=== PATIENT | male | born 1955 | race Caucasian/White ===

== ENCOUNTER 2018-12-08 07:58 | Outpatient (CLI) | payer MEDICARE, BC ==
[2018-12-08 09:56] LABS: ALBUMIN 4.4 g/dL (3.2-5.5); ALBUMIN/GLOBULIN RATIO 1.6 (1.0-2.2); ALKALINE PHOSPHATASE 25 IU/L (42-121); ALT ALANINE AMINOTRANSFERASE 20 IU/L (10-60); AST ASPARTATE AMINOTRANSFERASE 23 IU/L (10-42); BUN - BLOOD UREA NITROGEN 18 mg/dL (6-20); CALCIUM 9.2 mg/dL (8.5-10.3); CARBON DIOXIDE - CO2 29 mmol/L (21-32); CHLORIDE 103 mmol/L (101-111); CHOL/HDL RATIO 3.1 (<5.0); CHOLESTEROL 162 mg/dL; CREATININE 0.8 mg/dL (0.6-1.2); GFR - MDRD 97 (>89); GLUCOSE 111 mg/dL (70-100); HDL CHOLESTEROL 53 mg/dL; LDL CHOLESTEROL,CALCULATED 89 mg/dL; LDL/HDL RATIO 1.7 (<3.6); SODIUM 139 mmol/L (135-145); TOTAL PROTEIN 7.2 g/dL (6.7-8.2); VLDL CHOLESTEROL 20 mg/dL
== END 2018-12-08 07:59 | disposition home or self-care (01) ==
LOC: LAB.S 07:58
PROVIDERS: ATTEND Internal Medicine
DX: E78.5 Hyperlipidemia, unspecified (principal); Z12.5 Encounter for screening for malignant neoplasm of prostate
CPT/HCPCS: 36415; 80053; 80061; G0103; 83721; 84153

== ENCOUNTER 2020-05-03 09:33 | Outpatient (CLI) | payer MEDICARE, BC ==
[2020-05-03 14:56] LABS: BASOPHILS % (AUTO) 0.7 %; EOSINOPHILS # (AUTO) 0.3 10^3/uL (0.0-0.7); EOSINOPHILS % (AUTO) 5.4 %; HGB - HEMOGLOBIN 15.1 g/dL (14.0-18.0); LYMPHOCYTES # (AUTO) 1.3 10^3/uL (1.5-3.5); LYMPHOCYTES % (AUTO) 22.5 %; MEAN CORPUSCULAR HGB CONC 32.6 g/dL (32.0-36.0); MEAN PLATELET VOLUME 11.5 fL (7.4-11.4); MONOCYTES # (AUTO) 0.4 10^3/uL (0.0-1.0); MONOCYTES % (AUTO) 6.7 %; NEUTROPHILS # (AUTO) 3.6 10^3/uL (1.5-6.6); NEUTROPHILS % (AUTO) 62.8 %; PLT - PLATELET COUNT 253 10^3/uL (130-450); RED BLOOD COUNT 5.03 10^6/uL (4.70-6.10); RED CELL DISTRIBUTION WIDTH 14.1 % (12.0-15.0); WHITE BLOOD COUNT 5.8 x10^3/uL (4.8-10.8)
[2020-05-03 15:33] LABS: ALBUMIN 4.7 g/dL (3.2-5.5); ALBUMIN/GLOBULIN RATIO 1.8 (1.0-2.2); ALKALINE PHOSPHATASE 22 IU/L (42-121); ALT ALANINE AMINOTRANSFERASE 26 IU/L (10-60); AST ASPARTATE AMINOTRANSFERASE 29 IU/L (10-42); BUN - BLOOD UREA NITROGEN 17 mg/dL (6-20); CALCIUM 9.7 mg/dL (8.5-10.3); CARBON DIOXIDE - CO2 27 mmol/L (21-32); CHLORIDE 100 mmol/L (101-111); CHOL/HDL RATIO 3.7 (<5.0); CHOLESTEROL 226 mg/dL; CREATININE 0.8 mg/dL (0.6-1.2); GLUCOSE 109 mg/dL (70-100); HDL CHOLESTEROL 61 mg/dL; LDL CHOLESTEROL,CALCULATED 140 mg/dL; LDL/HDL RATIO 2.3 (<3.6); TOTAL PROTEIN 7.3 g/dL (6.7-8.2); VLDL CHOLESTEROL 25 mg/dL
== END 2020-05-03 09:34 | disposition home or self-care (01) ==
LOC: LAB.S 09:33
PROVIDERS: ATTEND Internal Medicine
DX: E78.5 Hyperlipidemia, unspecified (principal); Z12.5 Encounter for screening for malignant neoplasm of prostate; Z85.828 Personal history of other malignant neoplasm of skin; R51.9 Headache, unspecified
CPT/HCPCS: 36415; 80053; 80061; 85025; G0103; 83721; 84153

== ENCOUNTER 2020-12-04 09:18 | Outpatient (CLI) | payer MEDICARE, BC ==
[2020-12-04 14:37] LABS: BASOPHILS # (AUTO) 0.1 10^3/uL (0.0-0.1); EOSINOPHILS # (AUTO) 0.5 10^3/uL (0.0-0.7); EOSINOPHILS % (AUTO) 9.2 %; HGB - HEMOGLOBIN 14.2 g/dL (14.0-18.0); LYMPHOCYTES # (AUTO) 1.3 10^3/uL (1.5-3.5); MEAN CORPUSCULAR HEMOGLOBIN 30.5 pg (27.0-31.0); MEAN CORPUSCULAR HGB CONC 32.3 g/dL (32.0-36.0); MEAN CORPUSCULAR VOLUME 94.6 fL (80.0-94.0); MEAN PLATELET VOLUME 13.3 fL (7.4-11.4); MONOCYTES # (AUTO) 0.3 10^3/uL (0.0-1.0); MONOCYTES % (AUTO) 6.6 %; NEUTROPHILS # (AUTO) 2.9 10^3/uL (1.5-6.6); NEUTROPHILS % (AUTO) 57.6 %; PLT - PLATELET COUNT 171 10^3/uL (130-450); RED BLOOD COUNT 4.65 10^6/uL (4.70-6.10)
[2020-12-04 15:09] LABS: ALBUMIN 4.3 g/dL (3.2-5.5); ALBUMIN/GLOBULIN RATIO 1.7 (1.0-2.2); ALKALINE PHOSPHATASE 20 IU/L (42-121); ALT ALANINE AMINOTRANSFERASE 19 IU/L (10-60); AST ASPARTATE AMINOTRANSFERASE 18 IU/L (10-42); BILIRUBIN,TOTAL 0.9 mg/dL (0.2-1.0); BUN - BLOOD UREA NITROGEN 15 mg/dL (6-20); CALCIUM 8.8 mg/dL (8.5-10.3); CARBON DIOXIDE - CO2 30 mmol/L (21-32); CHLORIDE 101 mmol/L (101-111); CHOLESTEROL 190 mg/dL; CREATININE 0.7 mg/dL (0.6-1.2); GFR - MDRD 112 (>89); GLUCOSE 106 mg/dL (70-100); HDL CHOLESTEROL 47 mg/dL; LDL CHOLESTEROL,CALCULATED 123 mg/dL; LDL/HDL RATIO 2.6 (<3.6); POTASSIUM 3.9 mmol/L (3.5-5.0); SODIUM 138 mmol/L (135-145); TOTAL PROTEIN 6.8 g/dL (6.7-8.2); TRIGLYCERIDES 101 mg/dL; VLDL CHOLESTEROL 20 mg/dL
== END 2020-12-04 09:19 | disposition home or self-care (01) ==
LOC: LAB.S 09:18
PROVIDERS: ATTEND Internal Medicine
DX: I10 Essential (primary) hypertension (principal); E78.5 Hyperlipidemia, unspecified
CPT/HCPCS: 36415; 80053; 80061; 83721; 85025

== ENCOUNTER 2021-01-23 10:01 | Outpatient (CLI) | payer MEDICARE, BC | END 2021-01-23 10:02 | disposition home or self-care (01) | LOC: LAB.S 10:01 | PROVIDERS: ATTEND Internal Medicine | DX: Z01.84 Encounter for antibody response examination (principal) | CPT/HCPCS: 86769 ==

== ENCOUNTER 2021-04-29 07:38 | Outpatient (CLI) | payer MEDICARE, BC | END 2021-04-29 07:39 | disposition home or self-care (01) | LOC: DI 07:38 | PROVIDERS: ATTEND Internal Medicine Cardiovascular Disease | DX: I49.3 Ventricular premature depolarization (principal); I11.9 Hypertensive heart disease without heart failure | CPT/HCPCS: 93306 ==

== ENCOUNTER 2021-05-22 12:42 | Day surgery (SDC) | payer MEDICARE, BC ==
[2021-05-22] MEDS ORDERED: LACTATED RINGERS 1,000 ML IV ONE ×2 (12:49→15:09)
--- NOTE | 2021-05-22 13:53 | ANESTHESIA ---
Pre-Anesthesia VS, & Labs - Diagnosis screening, hx polyps - Procedure colonoscopy w/biopsies Vital Signs: Temp Pulse Resp BP Pulse Ox 36.2 C L 58 L 13 149/74 H 97 05/22/21 12:52 05/22/21 12:52 05/22/21 12:52 05/22/21 12:52 05/22/21 12:52 Height: 6 ft 1 in Weight (kg): 99 kg Body Mass Index: 28.8 BMI Classification: Overweight - NPO >8 hours - Lab Results Lab results reviewed: Yes Anes History & Medical History - Anesthetic History Anesthesia Complications: reports: No previous complications Family history of Anesthesia Complications: Denies Family history of Malignant Hyperthermia: Denies - Medical History Cardiovascular: reports: Hypertension, High cholesterol, Arrhythmia Pulmonary: reports: None Gastrointestinal: reports: None Urinary: reports: Benign prostate hypertrophy Musculoskeletal: reports: None Endocrine/Autoimmune: reports: None Skin: reports: Rosacea - Surgical History General: reports: Other Orthopedic: reports: Rotator cuff repair Exam General: Alert, Oriented x3, Cooperative Dental: WNL Mouth Openin Fingerbreadth Neck Mobility: Normal Mallampati classification: II Thyromental Distance: 4-6 cm Respiratory: Lungs clear, Normal breath sounds, No respiratory distress Cardiovascular: Regular rate (states hx of PVCs, regular today) Neurological: Normal speech Mental/Cognitive Status: Alert/Oriented X3, Normal for patient Cognitive Status: Within normal limits Plan Anesthesia Type: Total IV Consent for Procedure(s) Verified and Reviewed: Yes Code Status: Attempt Resuscitation ASA classification: 2-Mild systemic disease Is this case an emergency?: No
[2021-05-22] MEDS ORDERED: PROPOFOL 500 MG/50 ML 500 MG/50 ML VIAL ONE ×2 (14:28→15:26)
[2021-05-22] MEDS ORDERED: MIDAZOLAM 2 MG/2 ML VIAL ONE (14:29)
[2021-05-22 15:59] VITALS: BP 137/73
--- NOTE | 2021-05-22 16:01 | ANESTHESIA POST OP EVALUATION ---
Anesthesia Post Eval - Post Anesthesia Eval Vitals: Last Vital Signs Temp 36.1 C L 05/22/21 15:57 Pulse 53 L 05/22/21 15:57 Resp 12 05/22/21 15:57 BP 137/73 H 05/22/21 15:57 Pulse Ox 96 05/22/21 15:57 CV Function Including HR & BP: Stable Pain Control: Satisfactory Nausea & Vomiting: Negative Mental Status: Baseline Respiratory Status: Airway Patent Hydration Status: Satisfactory Anesthesia Complications: None
== END 2021-05-22 12:43 | disposition home or self-care (01) ==
LOC: SDS 12:42
PROVIDERS: ATTEND Surgery
PROC: 0DBH8ZZ Excision of Cecum, Via Natural or Artificial Opening Endoscopic (ICD-10-PCS; principal; 2021-05-22 13:00)
DX: Z12.11 Encounter for screening for malignant neoplasm of colon (principal); D12.0 Benign neoplasm of cecum; K57.30 Diverticulosis of large intestine without perforation or abscess without bleeding
CPT/HCPCS: 45380; J7120

== ENCOUNTER 2021-07-14 08:48 | Outpatient (CLI) | payer MEDICARE, BC ==
[2021-07-14 14:31] LABS: BASOPHILS # (AUTO) 0.1 10^3/uL (0.0-0.1); BASOPHILS % (AUTO) 1.1 %; EOSINOPHILS # (AUTO) 0.3 10^3/uL (0.0-0.7); EOSINOPHILS % (AUTO) 5.6 %; HCT - HEMATOCRIT 42.8 % (42.0-52.0); HGB - HEMOGLOBIN 14.5 g/dL (14.0-18.0); LYMPHOCYTES # (AUTO) 1.1 10^3/uL (1.5-3.5); LYMPHOCYTES % (AUTO) 19.6 %; MEAN CORPUSCULAR HGB CONC 33.9 g/dL (32.0-36.0); MEAN CORPUSCULAR VOLUME 91.5 fL (80.0-94.0); MEAN PLATELET VOLUME 13.1 fL (7.4-11.4); MONOCYTES # (AUTO) 0.3 10^3/uL (0.0-1.0); MONOCYTES % (AUTO) 6.3 %; NEUTROPHILS # (AUTO) 3.6 10^3/uL (1.5-6.6); NEUTROPHILS % (AUTO) 66.8 %; PLT - PLATELET COUNT 183 10^3/uL (130-450); RED BLOOD COUNT 4.68 10^6/uL (4.70-6.10); RED CELL DISTRIBUTION WIDTH 14.8 % (12.0-15.0); WHITE BLOOD COUNT 5.4 x10^3/uL (4.8-10.8)
[2021-07-14 14:48] LABS: ALBUMIN 4.4 g/dL (3.2-5.5); ALBUMIN/GLOBULIN RATIO 1.8 (1.0-2.2); ALKALINE PHOSPHATASE 23 IU/L (42-121); ALT ALANINE AMINOTRANSFERASE 20 IU/L (10-60); AST ASPARTATE AMINOTRANSFERASE 20 IU/L (10-42); BILIRUBIN,TOTAL 1.3 mg/dL (0.2-1.0); BUN - BLOOD UREA NITROGEN 14 mg/dL (6-20); CALCIUM 9.4 mg/dL (8.5-10.3); CARBON DIOXIDE - CO2 26 mmol/L (21-32); CHLORIDE 104 mmol/L (101-111); CHOL/HDL RATIO 3.8 (<5.0); CHOLESTEROL 199 mg/dL; CREATININE 0.8 mg/dL (0.6-1.2); GFR - MDRD 96 (>89); GLUCOSE 104 mg/dL (70-100); HDL CHOLESTEROL 52 mg/dL; LDL CHOLESTEROL,CALCULATED 127 mg/dL; LDL/HDL RATIO 2.4 (<3.6); POTASSIUM 4.2 mmol/L (3.5-5.0); SODIUM 137 mmol/L (135-145); TOTAL PROTEIN 6.9 g/dL (6.7-8.2); TRIGLYCERIDES 98 mg/dL; VLDL CHOLESTEROL 20 mg/dL
== END 2021-07-14 08:49 | disposition home or self-care (01) ==
LOC: LAB.S 08:48
PROVIDERS: ATTEND Registered Nurse
DX: I10 Essential (primary) hypertension (principal); E78.5 Hyperlipidemia, unspecified; Z12.5 Encounter for screening for malignant neoplasm of prostate
CPT/HCPCS: 36415; 80053; 80061; 85025; G0103; 83721; 84153

== ENCOUNTER 2021-07-31 16:24 | Outpatient (CLI) | payer MEDICARE, BC | END 2021-07-31 16:25 | disposition home or self-care (01) | LOC: LAB.S 16:24 | PROVIDERS: ATTEND Registered Nurse | DX: E55.9 Vitamin D deficiency, unspecified (principal) | CPT/HCPCS: 82306 ==

== ENCOUNTER 2021-11-17 18:56 | Outpatient (CLI) | payer MEDICARE, BC ==
--- NOTE | 2021-11-18 19:09 | XRAY Report ---
PROCEDURE: Lumbar Spine 2 View INDICATIONS: SCIATICA LEFT TECHNIQUE: 2 views of the lumbar spine were acquired. COMPARISON: None. FINDINGS: Bones: 5 [id number] vertebrae are present. There is normal bony alignment. No vertebral body compression fractures. No suspicious bony lesions. Osteopenia Soft tissues: Overlying bowel gas pattern is normal. No suspicious soft tissue calcifications. IMPRESSION: Osteopenia without fracture or malalignment Reviewed by: Greg Burkett MD on 11/18/2021 6:08 PM AXEL Approved by: Greg Burkett MD on 11/18/2021 6:08 PM AXEL Station ID: [id number]
== END 2021-11-17 18:57 | disposition home or self-care (01) ==
LOC: DI 18:56
PROVIDERS: ATTEND Family Medicine
DX: M85.88 Other specified disorders of bone density and structure, other site (principal); M54.32 Sciatica, left side

== ENCOUNTER 2022-02-20 10:15 | Outpatient (CLI) | payer MEDICARE, BC ==
--- NOTE | 2022-02-21 21:07 | MRI Report ---
PROCEDURE: LUMBAR SPINE WO INDICATIONS: Left sciatica TECHNIQUE: Noncontrast sagittal T1 spin echo and T2 fast echo, sagittal STIR, axial T1 and T2 fast spin echo thr ough the lumbar spine. In cases with scoliosis, additional coronal T2 fast spin echo may be performe d. COMPARISON: None. FINDINGS: Image quality: Excellent. Alignment and Curvature: Normal lumbar vertebral body height and alignment. Bone Marrow: No suspicious focal marrow signal abnormality or bone marrow edema. Spinal Cord: Conus medullaris terminates at the normal level. Visualized cord demonstrates normal s ignal and size. Regional Soft Tissues: Prevertebral and paraspinous soft tissues are within normal limits. T12-L1: No spinal canal or neural foraminal stenosis. L1-L2: No spinal canal or neural foraminal stenosis. Tiny posterior central annular fissure. L2-L3: Disc bulge flattens the ventral thecal sac without mass effect upon the traversing L3 nerve roots. Mild to moderate facet hypertrophy. No neural foraminal stenosis. L3-L4: Disc bulge flattens the ventral thecal sac. Mild displacement of the descending L4 nerve escobar ts and both subarticular zones. Foraminal components of the disc bulge and facet hypertrophy combine to produce mild bilateral neural foraminal stenosis, left greater than right. L4-L5: Moderate to severe spinal canal stenosis due to diffuse disc bulge and a superimposed broad- based posterior disc protrusion. Disc displacement of the descending bilateral L5 nerve roots and bot h subarticular zones. Moderate effacement of the CSF in the thecal sac and crowding of the traversing nerve roots. Buckling of ligamentum flavum and facet hypertrophy further contributes to spinal canal stenosis. Foraminal components of the disc bulge and facet hypertrophy combine to produce mild bilat eral neural foraminal stenosis L5-S1: Diffuse disc bulge and a superimposed broad-based posterior disc protrusion flattening the v entral thecal sac. Disc material mildly displaces the descending bilateral S1 nerve roots, left great er than right. No neural foraminal stenosis. IMPRESSION: Lower lumbar spine degenerative changes, worst at L4-L5 where there is moderate to sever e spinal canal stenosis. Correlate for any corresponding radicular symptoms. Reviewed by: Angel Murdock MD on 02/21/2022 9:06 PM PST Approved by: Angel Murdock MD on 02/21/2022 9:06 PM PST Station ID: [id number]
== END 2022-02-20 10:16 | disposition home or self-care (01) ==
LOC: DI 10:15
PROVIDERS: ATTEND Family Medicine
DX: M51.16 Intervertebral disc disorders with radiculopathy, lumbar region (principal); M48.061 Spinal stenosis, lumbar region without neurogenic claudication; M47.26 Other spondylosis with radiculopathy, lumbar region; M51.17 Intervertebral disc disorders with radiculopathy, lumbosacral region

== ENCOUNTER 2022-09-23 10:13 | Outpatient (CLI) | payer MEDICARE, BC ==
--- NOTE | 2022-09-23 13:50 | XRAY Report ---
PROCEDURE: Shoulder 3 View RT INDICATIONS: PAIN IN RIGHT SHOULDER TECHNIQUE: 3 views of the shoulder were acquired. COMPARISON: None. FINDINGS: Bones: No fractures or dislocations. No suspicious bony lesions. Visualized ribs appear intact. Mild acromioclavicular and glenohumeral joint degenerative changes. Soft tissues: Calcification projecting adjacent to the humeral head could represent sequela of calci fic tendinopathy or a loose body. IMPRESSION: No acute bony abnormality. If pain persists with conservative management, consider repeat radiographs in 10-14 days or cross-sectional imaging. Calcification projecting adjacent to the humeral head could represent sequela of calcific tendinopath y or a loose body. Reviewed by: Truman Molina MD on 09/23/2022 1:49 PM PDT Approved by: Truman Molina MD on 09/23/2022 1:49 PM PDT Station ID: [id number]
== END 2022-09-23 10:14 | disposition home or self-care (01) ==
LOC: DI 10:13
PROVIDERS: ATTEND Nurse Practitioner Family
DX: M25.511 Pain in right shoulder (principal)

== ENCOUNTER 2022-11-02 08:00 | Outpatient (CLI) | payer MEDICARE, BC ==
--- NOTE | 2022-11-03 14:20 | XRAY Report ---
PROCEDURE: Shoulder 1 View RT INDICATIONS: RIGHT SHOULDER PAIN TECHNIQUE: 1 views of the shoulder were acquired. COMPARISON: X-ray shoulder 09/23/2002 FINDINGS: Bones: No fractures or dislocations. No suspicious bony lesions. Visualized ribs appear intact. Humeral osteophyte is present Soft tissues: No suspicious soft tissue calcifications. IMPRESSION: No visualized thoracic outlet compression. Reviewed by: Danni Aguayo MD on 11/03/2022 2:19 PM PDT Approved by: Danni Aguayo MD on 11/03/2022 2:19 PM PDT Station ID: [id number]
== END 2022-11-02 23:59 | disposition home or self-care (01) ==
LOC: DI.WOS 08:00
PROVIDERS: ATTEND Physician Assistant Surgical
DX: M25.511 Pain in right shoulder (principal)

== ENCOUNTER 2022-11-06 12:30 | Outpatient (CLI) | payer MEDICARE, BC ==
--- NOTE | 2022-11-08 12:28 | MRI Report ---
PROCEDURE: SHOULDER WO - RT INDICATIONS: HIST OF MUSCULOTENDINOUS CUFF REPAIR TECHNIQUE: Noncontrast oblique coronal T2 fast spin echo with fat saturation, oblique sagittal T1 spin echo and T2 fast spin echo with fat saturation, axial T1 spin echo and T2 fast spin echo with fat saturation t hrough the shoulder. COMPARISON: Right shoulder radiographs 09/23/2022 and 11/02/2022. FINDINGS: Image quality: Excellent. Rotator cuff: Postsurgical changes are seen from rotator cuff tendon repair with magnetic susceptibil ity at the greater tuberosity that partially obscures the distal tendon attachment. However, there ap pears to be heterogeneous signal within the distal supraspinatus and infraspinatus tendons at their i nsertions without a recurrent large full-thickness tear seen. A hypoattenuating structure measuring 7 x 4 x 6 mm is consistent with a calcification related to calcific tendinopathy, as seen on the prior radiographs. The teres minor and subscapularis tendons are intact. There is no significant rotator c uff muscle atrophy. Bones and bursae: Postsurgical changes are seen at the greater tuberosity. No acute trabecular bone i njury or fracture. Clustered [id number] foci with interspersed fat are seen in the surgical nec k of the humerus, most likely related to a benign enchondroma versus a nonaggressive osseous lesion o r prior trauma. Thinning of the lateral acromion may be related to prior acromioplasty. Mild to moder ate degenerative changes at the acromioclavicular joint. A small amount of fluid is seen in the subac romial/subdeltoid bursa. There is a small amount of glenohumeral joint fluid. Capsule and soft tissues: No displaced labral tear is seen. The proximal biceps long head tendon demo nstrates mild tendinosis. The glenohumeral ligaments are grossly intact. IMPRESSION: 1.Postsurgical changes from prior rotator cuff tendon repair. Heterogeneity of the distal supraspinat us and infraspinatus tendons is suspicious for foci of low-grade partial intrasubstance tearing witho ut a definite full-thickness tear is seen. 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 2.Mild tendinosis of the proximal biceps long head tendon. 3.Suspected postsurgical changes from prior acromioplasty without recurrent narrowing of the supraspi natus outlet. [id number] acromioclavicular joint osteoarthrosis. 4.Small amount of fluid in the subacromial/subdeltoid bursa is expected in the postsurgical setting. Reviewed by: Truman Abarca MD on 11/08/2022 12:26 PM PDT Approved by: Truman Abarca MD on 11/08/2022 12:26 PM PDT Station ID: [id number]
== END 2022-11-06 12:31 | disposition home or self-care (01) ==
LOC: DI 12:30
PROVIDERS: ATTEND Physician Assistant Surgical
DX: Z98.890 Other specified postprocedural states (principal); M65.811 Other synovitis and tenosynovitis, right shoulder; M67.813 Other specified disorders of tendon, right shoulder; M19.011 Primary osteoarthritis, right shoulder

== ENCOUNTER 2023-02-28 10:00 | Outpatient (CLI) | payer MEDICARE, BC ==
[2023-02-28 12:45] LABS: BASOPHILS # (AUTO) 0.1 10^3/uL (0.0-0.1); BASOPHILS % (AUTO) 1.1 %; EOSINOPHILS # (AUTO) 0.5 10^3/uL (0.0-0.7); EOSINOPHILS % (AUTO) 8.7 %; HGB - HEMOGLOBIN 14.4 g/dL (14.0-18.0); LYMPHOCYTES # (AUTO) 1.2 10^3/uL (1.5-3.5); LYMPHOCYTES % (AUTO) 21.7 %; MEAN CORPUSCULAR HEMOGLOBIN 29.8 pg (27.0-31.0); MEAN CORPUSCULAR VOLUME 93.2 fL (80.0-94.0); MEAN PLATELET VOLUME 12.6 fL (7.4-11.4); MONOCYTES # (AUTO) 0.3 10^3/uL (0.0-1.0); MONOCYTES % (AUTO) 6.3 %; NEUTROPHILS # (AUTO) 3.3 10^3/uL (1.5-6.6); NEUTROPHILS % (AUTO) 61.5 %; PLT - PLATELET COUNT 176 10^3/uL (130-450); RED BLOOD COUNT 4.83 10^6/uL (4.70-6.10); RED CELL DISTRIBUTION WIDTH 13.6 % (12.0-15.0); WHITE BLOOD COUNT 5.4 x10^3/uL (4.8-10.8)
[2023-02-28 13:15] LABS: ALBUMIN 4.6 g/dL (3.2-5.5); ALKALINE PHOSPHATASE 24 IU/L (42-121); ALT ALANINE AMINOTRANSFERASE 19 IU/L (10-60); AST ASPARTATE AMINOTRANSFERASE 18 IU/L (10-42); BILIRUBIN,TOTAL 0.6 mg/dL (0.2-1.0); BUN - BLOOD UREA NITROGEN 16 mg/dL (6-20); CALCIUM 9.7 mg/dL (8.5-10.3); CARBON DIOXIDE - CO2 30 mmol/L (21-32); CHLORIDE 104 mmol/L (101-111); CHOL/HDL RATIO 3.2 (<5.0); CHOLESTEROL 184 mg/dL; CREATININE 0.8 mg/dL (0.6-1.3); GFR - MDRD 96 (>89); GLUCOSE 108 mg/dL (74-104); HDL CHOLESTEROL 57 mg/dL; LDL CHOLESTEROL,CALCULATED 112 mg/dL; POTASSIUM 4.3 mmol/L (3.5-4.5); SODIUM 139 mmol/L (135-145); TOTAL PROTEIN 6.9 g/dL (6.4-8.9); TRIGLYCERIDES 76 mg/dL (48-352); VLDL CHOLESTEROL 15 mg/dL
[2023-02-28 13:19] LABS: ESTIMATED AVERAGE GLUCOSE 108 mg/dL (70-100); HEMOGLOBIN A1c% 5.4 % (4.27-6.07)
[2023-02-28 13:24] LABS: THYROID STIMULATING HORMONE 1.89 uIU/mL (0.34-5.60)
== END 2023-02-28 10:01 | disposition home or self-care (01) ==
LOC: LAB.N 10:00
PROVIDERS: ATTEND Nurse Practitioner Family
DX: I10 Essential (primary) hypertension (principal); E78.5 Hyperlipidemia, unspecified; Z13.1 Encounter for screening for diabetes mellitus; E66.9 Obesity, unspecified; N40.1 Benign prostatic hyperplasia with lower urinary tract symptoms
CPT/HCPCS: 36415; 80053; 80061; 83036; 83721; 84153; 84443; 85025

== ENCOUNTER 2023-03-11 11:16 | Outpatient (CLI) | payer MEDICARE, BC | END 2023-03-11 11:17 | disposition home or self-care (01) | LOC: LAB.N 11:16 | PROVIDERS: ATTEND Nurse Practitioner Family | DX: M25.80 Other specified joint disorders, unspecified joint (principal) | CPT/HCPCS: 36415; 82306 ==